=== PATIENT | male | born 1995 | race Caucasian/White ===

== ENCOUNTER 2018-10-16 04:56 | Emergency (ER) | payer SELFPAY ==
[2018-10-16 04:57] VITALS: BP 139/70; PULSE 106; RESP 20; TEMP 36.6; O2SAT 98; BMI 28.3
--- NOTE | 2018-10-16 05:17 | ED.DCSUM_ITS ---
History of Present Illness Chief Complaint: Ear Problem Informant: Patient Onset: Hours - about 6 Context: - - woke him up from sleep Timing: Continuous Quality: pain, pressure Location: right ear Current Severity: Severe Maximum Severity: Severe Worsened by: - - trying to pop it Associated Symptoms: Nasal Congestion - and rhinorrhea, no cough Narrative: Runny nose and congestion for almost a week, now significant right earache with trouble hearing. No discharge from the ear. No recent swimming. No fevers, nausea, vomiting, dizziness, other systemic symptoms. Past Medical History Primary Care Physician: NOT,DEFINED [Primary Care Provider] - Past Medical History: None Lives: Roommate Drugs: None Review of Systems General: Denies: Chills, Fever ENT: Reports: Right ear pain, Rhinorrhea. Denies: Sore throat Cardiovascular: Denies: Chest pain, Palpitations Respiratory: Denies: Dyspnea, Cough Gastrointestinal: Denies: Abdominal pain, Nausea, Vomiting Skin: Denies: Rash, Abscess Neurological: Denies: Headache, Weakness, Numbness Physical Exam Vital Signs/Narrative: Vital Signs Temp Pulse Resp BP Pulse Ox 10/16/18 04:57 97.8 F 106 H 20 H 139/70 H 98 Inital Vital Signs reviewed: Yes General: Well nourished, Well developed, Unkempt, - - NAD Head: Normocephalic, Atraumatic Eyes: Perrl, EOMI Ears: Pain with Movement of Right Tragus, - - Right tympanic membrane is b ulging, erythematous and dulled. No perforation. Erythema in right EAC without edema. No discharge.. Negative for: Right Mastoid Tenderness, Left Mastoid Tenderness Nose: Normal Inspection. Negative for: Swollen Turbinates, Purulent Drainage Mouth/Throat: Normal Inspection, No Posterior Erythema, Airway Patent Neck: Supple, Nontender, No Lymphadenopathy, No Meningismus Skin: Normal color, No rash Neurological: Alert, Oriented x3, Cranial nerves II-XII grossly intact, Normal Strength, Normal Sensation, Normal Gait Psychological: Normal affect, Normal Mood Diagnostic/Tx/Re-eval - Medical Decision Making Consistent with otitis media. Patient is well-appearing. Will prescribe him Augmentin and and advised outpatient follow-up if not improving. ED Disposition - Plan for ED Patient: Disposition: Home or Assisted Living Diagnosis: Viral URI, Right otitis media Instructions: OTITIS MEDIA, Abx Tx (Adult) Prescriptions: Amoxicillin/Potassium Clav [Augmentin 875-125 Tablet] 1 ea PO BID #20 tab Prescription Printed Referrals: Edna Odom [NON-STAFF] - 3-5 Days if not improving
[2018-10-16] MEDS: Ibuprofen 600 MG Tablet PO (05:49)
[2018-10-16 05:57] VITALS: BP 115/73; PULSE 80; RESP 16; O2SAT 97
== END 2018-10-16 06:03 | disposition home or self-care (01) ==
LOC: ED 05:32
PROVIDERS: Emergency Provider Emergency Medicine
DX: J06.9 Acute upper respiratory infection, unspecified (principal); H66.91 Otitis media, unspecified, right ear
CPT/HCPCS: 99283

== ENCOUNTER 2024-11-03 16:01 | Emergency (ER) | payer MEDICAID, SELFPAY ==
[2024-11-03 16:03] VITALS: BP 130/78; PULSE 107; RESP 16; TEMP 36; O2SAT 98; BMI 35.2
--- NOTE | 2024-11-03 16:20 | RAD_ITS ---
PROCEDURE: CHEST PA AND LATERAL 11/03/2024 REASON FOR EXAM: RIB PAIN TECHNIQUE: Procedure Code: RADCXR Modality: DX Procedure: CHEST PA AND LATERAL COMPARISON: None. FINDINGS: Hardware: None. Heart: The heart size is normal. Mediastinum: The mediastinal contour is unremarkable. Lungs: The lungs are clear. Bones: The bones are unremarkable. RAD/Chest PA and Lateral IMPRESSION: NO ACUTE FINDINGS. Reading Location: [facility]
--- NOTE | 2024-11-03 18:02 | ED.RN ---
states he felt something pop followed by excruciating pain in his left ribs at 1530 today. experienced pain and discomfort in this area for past seven days.
--- NOTE | 2024-11-03 18:17 | CT_ITS ---
PROCEDURE: ABDOMEN/PELVIS WITHOUT CONT 11/03/2024 REASON FOR EXAM: LEFT UPPER AND LOWER ABD PAIN TECHNIQUE: Procedure Code: CTABDPEL Modality: CT Procedure: ABDOMEN/PELVIS WITHOUT CONT Noncontrast technique limits evaluation of the abdominal and pelvic viscera. Coronal and Sagittal reconstruction series were provided. One or more dose reduction techniques were used (e.g., Automated exposure control, adjustment of the mA and/or kV according to patient size, use of iterative reconstruction technique). RADIATION DOSE SUMMARY: CTDlvol: 16.65 mGy DLP: 919.15 mGycm COMPARISON: None FINDINGS: Study limitations: Evaluation for inflammatory change, bowel wall thickening, mass, adenopathy, viscera and vasculature is compromised on noncontrast evaluation. Lung bases: No consolidation or effusion at the visualized lung bases. Liver: Hepatic length is 15.2 cm. Evaluation of hepatic parenchyma is limited without contrast. Hepatic attenuation is consistent with steatosis. Gallbladder/biliary: Mildly distended gallbladder measuring 3.3 cm transversely. No calcified gallstones. If there are symptoms related to the gallbladder consider ultrasound. Pancreas: No pancreatic inflammation. Spleen: The spleen is not enlarged. Adrenals: The adrenal glands are unremarkable. Kidneys/ureters: There is no hydronephrosis. There are no renal calculi. No ureteral calculi. Evaluation of renal parenchyma is limited without contrast. Gastrointestinal: No hiatal hernia. Evaluation for bowel wall and fold thickening is compromised on this study, secondary to lack of any contrast. No appearance to suggest a complete bowel obstruction. No focal mesenteric inflammation. Mild enteritis or gastroenteritis can not be ruled out on this study. Small nonspecific mesenteric lymph nodes. Scattered fecal material and gas within portions of the colon and rectum. No pericolonic inflammation. No evidence of acute diverticulitis. Appendix: The appendix does not appear inflamed. Peritoneal/retroperitoneal: No free intraperitoneal air. No free fluid. Vascular: No abdominal aortic aneurysm or retroperitoneal hemorrhage. Vascular patency or dissection can not be assessed on this study. Lymph nodes: No pathologic appearing lymphadenopathy by size criteria. Urinary bladder: The urinary bladder appears slightly thick-walled, possibly artifact from insufficient distention. No calculi or gas within the urinary bladder. No perivesical stranding. Reproductive: The prostate does not appear enlarged. Soft tissues: No body wall hematoma. Osseous: Mild degenerative changes of the spine. Bilateral L5 spondylolysis. No acute fracture. CT/Abdomen/Pelvis without Cont IMPRESSION: Nonspecific gastrointestinal findings to be correlated clinically are discussed above. No free air, free fluid or focal mesenteric inflammation. - Other findings and study limitations discussed above. Reading Location: [id number]
--- NOTE | 2024-11-03 18:17 | EDS_ITS ---
HPI History of Present Illness Chief Complaint: Chest Other Detail of Chief Complaint: Left flank pain Informant: patient Narrative Narrative: Patient presents to the emergency department complaint left flank pain that started initially a week ago. Initially the discomfort was mild. Not having pain with coughing or stretching or moving certain ways. He had no nausea or vomiting. Denies blood in his stool or black tarry stool. Denies injury to his chest or abdomen. This morning he coughed and felt a pop in the left side and was concerned. He has no medical history otherwise. Denies recent travel or surgery. No history of PE or DVT. Denies dyspnea or pleuritic type pain. PFSH PFSH Medical History no medical history Home Medications ?Medication ?Instructions ?Recorded ?Last Taken ?Type amoxicillin 875 mg-potassium 1 ea PO BID #20 tabs 09/28 11/16 Unknown Rx clavulanate 125 mg tablet Allergy/AdvReac Type Severity Reaction Status Date / Time No Known Allergies Allergy Verified 11/03/24 16:03 Social History Smoking Status: Current every day smoker tobacco type: cigarettes ROS ROS ED Review of Systems ROS Unobtainable: other Constitutional Constitutional ED: Reports lethargy; Denies chills, fever(s), sweats or weight loss Eyes Eyes: Denies blurry vision, change in vision or diplopia ENT ENT ED: Denies rhinorrhea or sore throat Cardiovascular Cardiovascular: Denies chest pain, orthopnea or racing heartbeat Respiratory/Chest Respiratory/Chest: Denies cough, dyspnea, dyspnea on exertion, orthopnea or sputum Gastrointestinal Gastrointestinal: Reports abdominal pain; Denies diarrhea, nausea or vomiting Genitourinary Genitourinary ED: Denies dysuria, hematuria or urinary frequency Musculoskeletal Musculoskeletal: Denies arthralgias, back pain, myalgias or neck pain Integumentary Denies abscess, Abrasions or rash Neurologic Neurologic: Denies headache(s) or weakness Psychiatric Psychiatric: Denies anxiety, depression or suicidal thoughts Endocrine Endocrinology: Denies polydipsia, polyphagia or polyuria Hematologic/Lymphatic Hematologic/Lymphatic: Denies easy bleeding, easy bruising or lymphadenopathy Allergic/Immunologic Allergic/Immunologic ED: Denies mouth swelling, tongue swelling or urticaria EXAM Physical Exam Const Vital Signs: 11/03/24 16:03 11/03/24 17:59 Temperature 96.8 F L Temperature Source Temporal Pulse Rate 107 H Respiratory Rate 16 Respiratory Effort Normal Blood Pressure 130/78 H Blood Pressure Mean 95 Pulse Ox 98 Oxygen Delivery Method Room Air Positive well nourished and well developed General Appearance ED: well developed and NAD HEENT Reports TM's clear and moist mucous membranes normocephalic and atraumatic; Negative for trauma or tenderness Tympanic Membrane ED: Yes TM's clear Eyes PERRL and EOMs intact bilaterally General Eye ED: Negative for pale conjunctiva or scleral icterus Neck no lymphadenopathy, supple and no JVD General: Negative for tenderness Chest Wall inspection of chest normal and palpation of chest normal Chest: Negative for tenderness Resp normal respiratory effort and clear to auscultation bilaterally Effort and Inspection: Negative for respiratory distress or pain with movement Auscultation: Negative for rhonchi, wheezes or diminished lung sounds Cardio regular rate, regular rhythm, S1 normal heart sound, S2 normal heart sound and no murmurs Peripheral Pulses: pulses 2+ throughout GI normal to inspection, nondistended, normoactive bowel sounds, soft to palpation, non-distended and no masses GI Narrative: Tenderness palpation over the left upper quadrant and left lower quadrant. There are some mild guarding. There is no rebound, rigidity, or renal signs. No mass palpated. Back/Spine no CVA tenderness and no thoracic nor lumbar tenderness Extremity normal to inspection General Extremety ED: Negative for edema General Extremity: Negative for edema Neuro oriented x3, CN's II-XII intact bilaterally, no sensory deficits noted and gait normal Sensorium / Orientation: awake, alert, oriented to person, oriented to place and oriented to time Motor Exam: strength 5/5 throughout and strength abnormal Psych mental status grossly normal Skin no rashes or lesions noted and no wounds MDM MDM MDM Narrative Medical decision making narrative: Patient presents with left side pain. The emergency department is quite busy and nursing staff started protocol and obtain a chest x-ray given the complaint. X-ray was unremarkable. After my examination it is noted that it is more abdominal discomfort that seems to be the issue. An IV line will be established. Will obtain labs as well as a CT scan of the abdomen pelvis to rule out diverticulitis versus kidney stone or other abnormality. Lab workup showed minimally elevated white blood cell count of 12.9 with hemoglobin 16.5 and platelet count of 230. Chemistries unremarkable. Urinalysis unremarkable. CT of the abdomen pelvis showed no acute process. This point etiology of his pain unclear. Suspect this could be muscular strain. Lab Data Attestation: I reviewed the patient's lab results. Labs: Laboratory Results - last 24 hr 11/03/24 11/03/24 18:24 18:28 WBC 12.9 H RBC 5.32 Hgb 16.5 Hct 47.7 MCV 89.7 MCH 31.0 MCHC 34.6 RDW Std Deviation 39.5 RDW Coeff of Richar 11.9 Plt Count 230 MPV 10.1 Immature Gran % (Auto) 0.800 Neut % (Auto) 71.2 H Lymph % (Auto) 16.3 L [place] % (Auto) 9.4 Eos % (Auto) 1.9 Baso % (Auto) 0.4 Absolute Neuts (auto) 9.2 H Absolute Lymphs (auto) 2.09 Nucleated RBC % 0 Sodium 139 Potassium 4.3 Chloride 102 Carbon Dioxide 23.8 Anion Gap 13 BUN 8 Creatinine 1.08 Estim Creat Clear Calc 120.81 Est GFR (MDRD) Non-Af 96 BUN/Creatinine Ratio 7.2 L Glucose 87 Calcium 9.6 Urine Color Straw Urine Clarity Clear Urine pH 7.0 Ur Specific [place] 1.010 Urine Protein 15 H Urine Glucose (UA) Normal Urine Ketones Negative Urine Occult Blood Negative Urine Nitrite Negative Urine Bilirubin Negative Urine Urobilinogen Normal Ur Leukocyte Esterase 25 H Urine RBC 0 SEEN Urine WBC 0-5 SEEN Ur Squamous Epith Cells 0-5 SEEN Urine Bacteria RARE Urine Mucus 0 SEEN Radiography Diagnostic Testing: Clinical Impression(s) from Imaging Studies Chest X-Ray 11/03/24 16:20 IMPRESSION: NO ACUTE FINDINGS. Reading [facility] Abdomen/Pelvis CT 11/03/24 18:17 IMPRESSION: Nonspecific gastrointestinal findings to be correlated clinically are discussed above. No free air, free fluid or focal mesenteric inflammation. - Other findings and study limitations discussed above. Reading Location: [id number] Discharge Plan Triage Chief Complaint: Chest Other ED Provider: Marcelina Brito Dx/Rx/DC Orders Clinical Impression: Acute left flank pain Instructions: ED Flank Pain with Uncertain Cause Prescriptions: No Action amoxicillin-pot clavulanate 1 EACH tablet 1 ea PO BID Qty: 20 0RF Primary Care Provider: Care Physician,No Primary Referrals: Wilfrido Jackson MD [Med Staff - Active Staff] - 5-7 Days Care Physician,No Primary [Primary Care Provider] - Print Language: [place] Disposition Disposition: Home, Self Care
--- OUTSIDE RECORDS SUMMARY | 2024-11-03 18:30 | XMS RPT_ITS | CCD ---
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 20 tablet 03/14/2024 Active predniSONE 10 mg oral tablet (1 source) Start: 03-14-2024 End: 03-26-2024 predniSONE (DELTASONE) 10 mg tablet Indications: Acute left-sided low back pain with left-sided sciatica Take 4 tabs daily x 3 days, then 3 tabs x 3 days, 2 tabs x 3 days, then 1 tab x3 days with food. 30 tablet 03/14/2024 03/26/2024 Active Problems Problem Classification Problem Date Documented Da te Episodic/Chronic Spondylosis; intervertebral disc disorders; other back problems (1 source) Acute back pain with sciatica; Translations: [Lumbago with sciatica, left side] 03-14-2024 Episodic Results Test Name Value Interpretation Reference Range Facil ity CNOVon 03-14-2024 CNOV Office Visit ([facility] ) GILSON ROCHA ([id number]) 1995 M Date Time Provider Department 03/14/24 10:00 AM YOSELIN BOB [facility] During your visit today, we recorded the following information about you: Temperature Pulse Respiration Blood pressure 96.9 degrees 94/minute 16/minute 132/72 Weight 96.7 kg Yoselin BobRALPH 03/14/2024 10:24 AM Signed Subjective HPI HPI Gilson Rocha is a 28 year old male who presents today for CC of low back pain. This started 2.5 weeks ago. Has tried otc medication for relief. Symptoms are worsened by rom and sleeping wrong. Risk factors hx of back pain. Denies injury for current s/s. .Patient presents with: Back Pain: lower back and tailbone pain x 2.5 weeks No past medical history on file. No past surgical history on file. ALLERGIES Patient has no known allergies. MEDICATIONS predniSONE (DELTASONE) 10 mg tablet Take 4 tabs daily x 3 days, then 3 tabs x 3 days, 2 tabs x 3 days, then 1 tab x3 days with food. cyclobenzaprine (FLEXERIL) 10 mg tablet Take 1 tablet by mouth three times a day as needed. No family history on file. Review of Systems Constitutional: Negative for chills, fever and weight loss. Cardiovascular: Negative for leg swelling. Gastrointestinal: Negative for abdominal pain, constipation, diarrhea, nausea and vomiting. Genitourinary: Negative for dysuria, flank pain, frequency, hematuria and urgency. Musculoskeletal: Positive for back pain. Skin: Negative for rash. Neurological: Negative for sensory change and focal weakness. Objective Blood pressure 132/72, pulse 94, temperature 36.1 ?C (96.9 ?F), resp. rate 16, weight 96.7 kg (213 lb 3 oz), SpO2 98%. Physical Exam Constitutional: General: He is not in acute distress. Appearance: Normal appearance. He is not diaphoretic. Cardiovascular: Pulses: Dorsalis pedis pulses are 2+ on the right side and 2+ on the left side. Posterior tibial pulses are 2+ on the right side and 2+ on the left side. Abdominal: General: Bowel sounds are normal. Palpations: Abdomen is soft. Tenderness: There is no abdominal tenderness. Musculoskeletal: Lumbar back: Spasms present. Decreased range of motion. Comments: Lumbar paraspinal muscles tender with palpation Neurological: Mental Status: He is alert and oriented to person, place, and time. Gait: Gait is intact. Gait normal. Deep Tendon Reflexes: Reflex Scores: Patellar reflexes are 2+ on the right side and 2+ on the left side. ASSESSMENT/PLAN: 1. Acute left-sided low back pain with left-sided sciatica - ICD9: 724.2, 724.3, ICD10: M54.42 Steroids/flexeril ordered F/u with pcp if s/s persist/worsen/change Urgent f/u for red flag symptoms - PREDNISONE 10 MG TABLET - CYCLOBENZAPRINE 10 MG TABLET Yoselin Bob APRN.CENTRIFUGAL MACHINE TENDER Allergies As of Date: 03/14/2024 (No Known Allergies) Date Reviewed: 03/14/2024 Reviewed by: Hailee Robin MA - Fully Assessed Reason for Visit: Back Pain [12] Cmt: lower back and tailbone pain x 2.5 weeks Primary Visit Diagnosis:Acute left-sided low back pain with left-sided sciatica [M54.42] Order(s):predniSONE (DELTASONE) 10 mg tabletTake 4 tabs daily x 3 days, then 3 tabs x 3 days, 2 tabs x 3 days, then 1 tab x3 days with food.Disp: 30 tabletRfl: 0 cyclobenzaprine (FLEXERIL) 10 mg tabletTake 1 tablet by mouth three times a day as needed.Disp: 20 tabletRfl: 0 Prescriptions as of 03/14/2024 - predniSONE (DELTASONE) 10 mg tablet Take 4 tabs daily x 3 days, then 3 tabs x 3 days, 2 tabs x 3 days, then 1 tab x3 days with food. - cyclobenzaprine (FLEXERIL) 10 mg tablet Take 1 tablet by mouth three times a day as needed. Problem List As Of Date: 03/14/2024 (None) Prescriptions ordered this encounter Disp Refills Start End PREDNISONE 10 MG TABLET 30 t* 0 03/14/2024 03/26/2024 Sig: Take 4 tabs daily x 3 days, then 3 tabs x 3 days, 2 tabs x 3 days, then 1 tab x3 days with food. CYCLOBENZAPRINE 10 MG TABLET 20 t* 0 03/14/2024 Route: ORAL Sig: Take 1 tablet by mouth three times a day as needed. Letter Text Encounter Status:Closed by YOSELIN BOB on 03/14/24 Normal [facility] Vital Signs Date Time Vital Sign Value Performing Clinician Rosendo gonzalez 03-14-2024 10:05-0500 Body temperature 96.91 [degF] Yoselin Bob APRN.CENTRIFUGAL MACHINE TENDER Work Phone: [facility] 03-14-2024 10:05-0500 Body weight 96.7 kg Yoselin Bob APRN.CENTRIFUGAL MACHINE TENDER Work Phone: [facility] 03-14-2024 10:05-0500 Diastolic blood pressure 72 mm[Hg] Yoselin Bob VOCATIONAL EDUCATION TEACHER.CENTRIFUGAL MACHINE TENDER Work Phone: [facility] 03-14-2024 10:05-0500 Heart rate 94 /min Yoselin Bob APRN.CENTRIFUGAL MACHINE TENDER Work Phone: [facility] 03-14-2024 10:05-0500 Respiratory rate 16 /min Yoselin Bob APRN.CENTRIFUGAL MACHINE TENDER Work Phone: [facility] 03-14-2024 10:05-0500 SaO2% (BldA) [Mass fraction] 98 % Yoselin Bob APRN.CENTRIFUGAL MACHINE TENDER Work Phone: [facility] 03-14-2024 10:05-0500 Systolic blood pressure 132 mm[Hg] Yoselin Bob APRN.CENTRIFUGAL MACHINE TENDER Work Phone: [facility] Encounters Encounter Date Encounter Type Care Provider Facility Start: 03-14-2024 End: 03-14-2024 ambulatory Facility:[facility] Start: 03-14-2024 End: 03-14-2024 Patient encounter procedure Yoselin Bob APRN.CENTRIFUGAL MACHINE TENDER Work Phone: [facility] Comment on above: Acute left-sided low back pain with left-sided sciatica (Primary Dx) Plan of Treatment Date Care Activity Detail Author Start: 10-30-2023 Covid-19 Vaccine ( season) Covid-19 Vaccine ( season) [facility] Start: 10-30-2023 Influenza vaccination Influenza Vacc ine (#1) [facility] Start: 2016 Urine microalbumin profile DTa P,Tdap,Td Vaccine (2 - Tdap) [facility] Start: 05-22-2015 Anxiety Screening Anxiety Screening [facility] Start: 05-22-2015 Depression Screening Depression Scre ening [facility] Start: 05-22-2015 Hepatitis C screening Hepatitis C Sc natashaning [facility] Start: 05-22-2015 HIV screening HIV Screening [facility] Start: 2012 HPV Vaccine (1 - Mal e 3-dose series) HPV Vaccine (1 - Male 3-dose series) [facility] Start: 05-22-2011 Peds To Adult Transi tion Annual Assessment Peds To Adult Transition Annual Assessment [facility] Start: 2009 Peds To Adult Transi tion Initial Discussion Peds To Adult Transition Initial Discussion [facility] Start: 1995 Hepatitis B Vaccine (3 of 3 - 3-dose series) Hepatitis B Vaccine (3 of 3 - 3-dose series) [facility] Payers Date Payer Category Payer Medicaid [facility] MEDICAID [facility] [employer] [facility] [place] [id number] 2024-Present [phone] [address] [place] [address] Medicaid [id number] 2024 Medicaid [id number] Social History Date Type Detail [facility] Start: 1995 Sex assigned at Not on file [facility] Gender identity Not on file [facility] inic Progress note 03-14-2024 Note Date & Type Note Facility 03-14-2024 Note HNO ID: [id number] Author: YOSELIN BOB APRN.CENTRIFUGAL MACHINE TENDER Service: ? Author Type: Nurse Practitioner Type: Progress Notes Filed: 03/14/2024 10:24 Note Text: Subjective HPI HPI Gilson Rocha is a 28 year old male who presents today for CC of low back pain. This started 2.5 weeks ago. Has tried otc medication for relief. Symptoms are worsened by rom and sleeping wrong. Risk factors hx of back pain. Denies injury for current s/s. .Patient presents with: Back Pain: lower back and tailbone pain x 2.5 weeks No past medical history on file. No past surgical history on file. ALLERGIES Patient has no known allergies. MEDICATIONS predniSONE (DELTASONE) 10 mg tablet Take 4 tabs daily x 3 days, then 3 tabs x 3 days, 2 tabs x 3 days, then 1 tab x3 days with food. cyclobenzaprine (FLEXERIL) 10 mg tablet Take 1 tablet by mouth three times a day as needed. No family history on file. Review of Systems Constitutional: Negative for chills, fever and weight loss. Cardiovascular: Negative for leg swelling. Gastrointestinal: Negative for abdominal pain, constipation, diarrhea, nausea and vomiting. Genitourinary: Negative for dysuria, flank pain, frequency, hematuria and urgency. Musculoskeletal: Positive for back pain. Skin: Negative for rash. Neurological: Negative for sensory change and focal weakness. Objective Blood pressure 132/72, pulse 94, temperature 36.1 ?C (96.9 ?F), resp. rate 16, weight 96.7 kg (213 lb 3 oz), SpO2 98%. Physical Exam Constitutional: General: He is not in acute distress. Appearance: Normal appearance. He is not diaphoretic. Cardiovascular: Pulses: Dorsalis pedis pulses are 2+ on the right side and 2+ on the left side. Posterior tibial pulses are 2+ on the right side and 2+ on the left side. Abdominal: General: Bowel sounds are normal. Palpations: Abdomen is soft. Tenderness: There is no abdominal tenderness. Musculoskeletal: Lumbar back: Spasms present. Decreased range of motion. Comments: Lumbar paraspinal muscles tender with palpation Neurological: Mental Status: He is alert and oriented to person, place, and time. Gait: Gait is intact. Gait normal. Deep Tendon Reflexes: Reflex Scores: Patellar reflexes are 2+ on the right side and 2+ on the left side. ASSESSMENT/PLAN: 1. Acute left-sided low back pain with left-sided sciatica - ICD9: 724.2, 724.3, ICD10: M54.42 Steroids/flexeril ordered F/u with pcp if s/s persist/worsen/change Urgent f/u for red flag symptoms - PREDNISONE 10 MG TABLET - CYCLOBENZAPRINE 10 MG TABLET Yoselin Bob APRN.[facility] History of Present illness Narrative 03-14-2024 Yoselin Bob APRN.CENTRIFUGAL MACHINE TENDER - 03/14/2024 10:22 AM EST Note Date & Type Note Facility 03-14-2024 History of Presen t illness Narrative Subjective HPI HPI Gilson Rocha is a 28 year old male who presents today for CC of low back pain. This started 2.5 weeks ago. Has tried otc medication for relief. Symptoms are worsened by rom and sleeping wrong. Risk factors hx of back pain. Denies injury for current s/s. .Patient presents with: Back Pain: lower back and tailbone pain x 2.5 weeks No past medical history on file. No past surgical history on file. ALLERGIES Patient has no known allergies. MEDICATIONS predniSONE (DELTASONE) 10 mg tablet Take 4 tabs daily x 3 days, then 3 tabs x 3 days, 2 tabs x 3 days, then 1 tab x3 days with food. cyclobenzaprine (FLEXERIL) 10 mg tablet Take 1 tablet by mouth three times a day as needed. No family history on file. Review of Systems Constitutional: Negative for chills, fever and weight loss. Cardiovascular: Negative for leg swelling. Gastrointestinal: Negative for abdominal pain, constipation, diarrhea, nausea and vomiting. Genitourinary: Negative for dysuria, flank pain, frequency, hematuria and urgency. Musculoskeletal: Positive for back pain. Skin: Negative for rash. Neurological: Negative for sensory change and focal weakness. Objective Blood pressure 132/72, pulse 94, temperature 36.1 C (96.9 F), resp. rate 16, weight 96.7 kg (213 lb 3 oz), SpO2 98%. Physical Exam Constitutional: General: He is not in acute distress. Appearance: Normal appearance. He is not diaphoretic. Cardiovascular: Pulses: Dorsalis pedis pulses are 2+ on the right side and 2+ on the left side. Posterior tibial pulses are 2+ on the right side and 2+ on the left side. Abdominal: General: Bowel sounds are normal. Palpations: Abdomen is soft. Tenderness: There is no abdominal tenderness. Musculoskeletal: Lumbar back: Spasms present. Decreased range of motion. Comments: Lumbar paraspinal muscles tender with palpation Neurological: Mental Status: He is alert and oriented to person, place, and time. Gait: Gait is intact. Gait normal. Deep Tendon Reflexes: Reflex Scores: Patellar reflexes are 2+ on the right side and 2+ on the left side. ASSESSMENT/PLAN: 1. Acute left-sided low back pain with left-sided sciatica - ICD9: 724.2, 724.3, ICD10: M54.42 Steroids/flexeril ordered F/u with pcp if s/s persist/worsen/change Urgent f/u for red flag symptoms - PREDNISONE 10 MG TABLET - CYCLOBENZAPRINE 10 MG TABLET Yoselin Bob APRN.CENTRIFUGAL MACHINE TENDER documented in this encounter [facility] Evaluation note Note Date & Type Note Facility Evaluation note Diagnosis Acute left-sided low back pain with left-sided sciatica- Primary documented in this encounter [facility] Summary Purpose Family History No Family History Records Found Advance Directives No Advanced Directives Records Found Additional Source Comments Source Comments (unrecognize d section and content) In the event this informatio n is protected by the Federal Confidentiality of Alcohol and Drug Abuse Patient Records regulations: The Federal rules restrict any use of the information to criminally investigate or prosecute any alcohol or drug abuse patient.[facility] Reason for Visit (unrecogniz ed section and content) Reason Comments Back Pain lower back and tailb one pain x 2.5 weeks (unrecognized sect ion and content) No Status Records Found INFORMATION SOURCE (unrecogn ized section and content) DATE CREATED AUTHOR 03/17/2024 [facility] FOR RECORDS PERTAINING TO PATIENTS WHO ARE OR HAVE BEEN ENROLLED IN A CHEMICAL DEPENDENCY/SUBSTANCEABUSE PROGRAM, SOME INFORMATION MAY BE OMITTED. This clinical summary was aggregated from multiple sources. Caution should be exercised in using it in the provision of clinical care. This summary normalizes information from multiple sources, and as a consequence, information in this document may materially change the coding, format and clinical context of patient data. In addition, data may be omitted in some cases. CLINICAL DECISIONS SHOULD BE BASED ON THE PRIMARY CLINICAL RECORDS. [facility] [employer] [facility] provides no warranty or guarantee of the accuracy or completeness of information in this document.
[2024-11-03 18:31] LABS: Hematocrit 47.7 % (40-54); Hemoglobin 16.5 g/dL (13.0-16.5); Immature Granulocytes Count 0.100 X10^3/uL (0.0-0.0); Mean Corp Hgb Conc 34.6 g/dL (32-36); Mean Corpuscular Volume 89.7 fL (80-94); Mean Platelet Vol. 10.1 fl (6.2-12.0); NRBC Flagged by Analyzer 0 % (0-5); Platelet Count 230 K/mm3 (150-450); RBC Distribution Width CV 11.9 % (11.6-14.6); RBC Distribution Width SD 39.5 fl (35.1-43.9); Red Blood Count 5.32 M/mm3 (4.6-6.2); White Blood Count 12.9 K/mm3 (4.4-11.0)
[2024-11-03 18:37] LABS: Mucous, Urine 0 SEEN /hpf (<or=2+); Red Blood Cells-Urine 0 SEEN /hpf (0-5)
[2024-11-03 18:39] LABS: Color, Urine Straw (Yellow); Glucose, Dipstick Normal (Normal); Ketone-Dipstick Negative (Negative); Leukocyte Esterase-Dipstick 25 /ul (Negative); Nitrite-Dipstick Negative (Negative); Occult Blood-Urine Negative /ul (Negative); Protein-Dipstick 15 mg/dl (Negative); Specific Gravity, Urine 1.010 (1.002-1.030); Urine Bilirubin Dipstick Negative (Negative)
[2024-11-03 18:48] LABS: Squamous Epithelial Cells - UA 0-5 SEEN /hpf (0-5)
[2024-11-03 19:07] LABS: Anion Gap 13 (5-15); BUN 8 mg/dL (4-19); BUN/Creat Ratio 7.2 RATIO (10-20); Calcium,Total 9.6 mg/dL (7.6-11.0); Carbon Dioxide 23.8 mmol/L (21.0-32.0); Chloride 102 mmol/L (98-108); Estimated Creatinine Clearance 120.81 ml/min (50-250); Glucose 87 mg/dL (70-99); Potassium 4.3 mmol/L (3.3-5.1)
[2024-11-03 20:02] VITALS: BP 110/96; PULSE 72; RESP 16; O2SAT 100
[2024-11-03 20:19] VITALS: BP 110/96; PULSE 72; RESP 16; TEMP 36.6; O2SAT 100
== END 2024-11-03 20:35 | disposition home or self-care (01) ==
PROVIDERS: Emergency Provider Emergency Medicine; Visit Provider Emergency Medicine
DX: R10.12 Left upper quadrant pain (principal); R10.32 Left lower quadrant pain; F17.210 Nicotine dependence, cigarettes, uncomplicated
CPT/HCPCS: 71046; 74176; 80048; 81001; 85025; 99283; A4216